=== PATIENT | male | born 1990 | race Caucasian/White ===

== ENCOUNTER 2016-09-04 11:54 | Emergency (ER) | payer OTHER ==
[~2016-09-04] VITALS: Ht 170.2 cm; Wt 81.6 kg
--- NOTE | 2016-09-04 12:01 | NUR ---
PT TAKEN TO XRAY VIA W/C BY TECH.
[2016-09-04 12:02] VITALS: BP 157/93
[2016-09-04 12:07] VITALS: BP 157/93
--- NOTE | 2016-09-04 12:11 | NUR ---
PATIENT AMBULATED TO BED 3.
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
[2016-09-04] MEDS ORDERED: HYDROcodone/APAP 5/325 MG 1 TAB TAB PO ONE (12:20)
--- NOTE | 2016-09-04 12:43 | NUR ---
PT TO CT VIA WHEEL CHAIR
--- NOTE | 2016-09-04 13:00 | NUR ---
RETURNED FROM CT
== END 2016-09-04 14:30 | disposition home or self-care (01) ==
LOC: MED 11:54
DX: S06.0X0A Concussion without loss of consciousness, initial encounter (principal); S05.12XA Contusion of eyeball and orbital tissues, left eye, initial encounter; Y04.8XXA Assault by other bodily force, initial encounter; Y93.01 Activity, walking, marching and hiking; Y92.89 Other specified places as the place of occurrence of the external cause; Y99.8 Other external cause status

== ENCOUNTER 2017-02-03 12:36 | Emergency (ER) | payer OTHER ==
[~2017-02-03] VITALS: Ht 170.2 cm; Wt 90.0 kg
[2017-02-03 12:41] VITALS: BP 140/98
--- NOTE | 2017-02-03 12:42 | NUR ---
PT AMBULATED TO BED 11.
--- NOTE | 2017-02-03 13:05 | NUR ---
Dr. De La Rosa evaluating patient at bedside.
[2017-02-03] MEDS ORDERED: DIPHENOXYLATE /ATROPINE 2.5 MG TAB PO ONE (13:10)
[2017-02-03] MEDS ORDERED: ONDANSETRON 4 MG ODT PO ONE (13:10)
--- NOTE | 2017-02-03 13:15 | NUR ---
26 M BIB SELF WITH C/O 4/10 "SHARP" NON RADIATING EPIGASTRIC PAIN X 2 DAYS WITH N/V/D; PT DENIES ANY BLOOD IN EMESIS OR BOWEL; PT REPORT OF HAVING FEVER LAST NIGHT; PT DENIES ANY URINARY COMPLAINTS; AOX4 WITH EVEN AND STEADY GAIT; VSS; PATIENT POSITIONED FOR COMFORT; HOB ELEVATED; BEDRAILS UP X2; BED DOWN. ER MD MADE AWARE OF PT STATUS.
[2017-02-03 13:47] VITALS: BP 138/90
--- NOTE | 2017-02-03 13:47 | NUR ---
Patient discharged with v/s stable. Written and verbal after care instructions given and explained. Patient alert, oriented and verbalized understanding of instructions. Ambulatory with steady gait. All questions addressed prior to discharge. ID band removed. Patient advised to follow up with PMD. Rx of lOMOTIL AND ZOFRAN given. Patient educated on indication of medication including possible reaction and side effects. Opportunity to ask questions provided and answered.
== END 2017-02-03 13:47 | disposition home or self-care (01) ==
LOC: MED 12:36
DX: R11.10 Vomiting, unspecified (principal); R19.7 Diarrhea, unspecified; R03.0 Elevated blood-pressure reading, without diagnosis of hypertension; R10.13 Epigastric pain; R42 Dizziness and giddiness; R53.1 Weakness
CPT/HCPCS: 99283; S0119

== ENCOUNTER 2018-01-24 09:56 | Emergency (ER) | payer OTHER ==
[~2018-01-24] VITALS: Ht 172.7 cm; Wt 94.9 kg
[2018-01-24 10:03] VITALS: BP 140/98
--- NOTE | 2018-01-24 10:10 | NUR ---
27Y/M BIB C/O LT SHOULDER PAIN WITH SOB SINCE THIS MORNING; DENIES INJURY. PT STATES " HE HAS LEFT SHOULDER PAIN WITH BREATHING." 10/10 PAIN SCALE; FULL ROM AT THIS TIME, NO SWEELING OR REDNESS NOTED. BED DOWN. BEDRAIL UP X 1. ER MD AWARE AND NOTIFIED AT THIS TIME. HX; DENIES RX; NONE
[2018-01-24] MEDS ORDERED: KETOROLAC 60 MG/2 ML VIAL IM ONE (10:25)
--- NOTE | 2018-01-24 10:25 | NUR ---
Patient being evaluated by physician at bedside.
[2018-01-24 10:45] VITALS: BP 138/97
== END 2018-01-24 10:45 | disposition home or self-care (01) ==
LOC: MED 09:59
DX: R06.02 Shortness of breath (principal); M54.6 Pain in thoracic spine; F17.200 Nicotine dependence, unspecified, uncomplicated
CPT/HCPCS: 96372; 99283; J1885

== ENCOUNTER 2018-02-16 13:41 | Emergency (ER) | payer OTHER ==
[~2018-02-16] VITALS: Ht 170.2 cm; Wt 98.9 kg
[2018-02-16 13:52] VITALS: BP 152/82
--- NOTE | 2018-02-16 14:00 | NUR ---
BIB SELF. PATIENT PRESENTS TO ED WITH AMB PAIN AND N/V/D X 2 DAYS. PT STATES THE VOMITING STARTED TODAY. SKIN IS PINK/WARM/DRY; AAOX4 WITH EVEN AND STEADY GAIT; LUNGS CLEAR BL; HR EVEN AND REGULAR; PT DENIES ANY FEVER, CP, SOB, OR COUGH AT THIS TIME; PATIENT STATES PAIN OF 6/10 AT THIS TIME; VSS; PATIENT POSITIONED FOR COMFORT; HOB ELEVATED; BEDRAILS UP X2; BED DOWN. ER MD MADE AWARE OF PT STATUS.
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
[2018-02-16] MEDS ORDERED: ALUMINUM HYD/MAG/SIMETHICONE 30 ML, DICYCLOMINE HCL LIQUID 20 MG, LIDOCAINE VISCOUS 2% ... PO ONE ×3 (14:25)
[2018-02-16] MEDS ORDERED: ONDANSETRON 4 MG ODT PO ONE (14:25)
--- NOTE | 2018-02-16 14:30 | NUR ---
PA AT BEDSIDE.
[2018-02-16 15:08] VITALS: BP 152/82
--- NOTE | 2018-02-16 15:09 | NUR ---
DPatient discharged with v/s stable. Written and verbal after care instructions given and explained. Patient alert, oriented and verbalized understanding of instructions. Ambulatory with steady gait. All questions addressed prior to discharge. ID band removed. Patient advised to follow up with PMD. Rx of PEPCID, ZOFRAN given. Patient educated on indication of medication including possible reaction and side effects. Opportunity to ask questions provided and answered.
== END 2018-02-16 15:09 | disposition home or self-care (01) ==
LOC: MED 13:41
DX: R10.9 Unspecified abdominal pain (principal); R14.0 Abdominal distension (gaseous); R11.10 Vomiting, unspecified; K59.00 Constipation, unspecified
CPT/HCPCS: 99283; Q0162

== ENCOUNTER 2018-10-17 11:37 | Emergency (ER) | payer OTHER ==
[~2018-10-17] VITALS: Ht 172.7 cm; Wt 95.4 kg
[2018-10-17 11:45] VITALS: BP 125/81
--- NOTE | 2018-10-17 11:55 | NUR ---
PT AMBULATED TO ER BED 5
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
--- NOTE | 2018-10-17 12:39 | NUR ---
DR. ERNST BEDSIDE EVALUATING PT
[2018-10-17 13:08] VITALS: BP 128/79
--- NOTE | 2018-10-17 13:08 | NUR ---
Patient discharged with v/s stable. Written and verbal after care instructions given and explained. Patient alert, oriented and verbalized understanding of instructions. Ambulatory with steady gait. All questions addressed prior to discharge. ID band removed. Patient advised to follow up with PMD. Rx of Ciprofloxacin 0.2% otic solution, Augmentin given. Patient educated on indication of medication including possible reaction and side effects. Opportunity to ask questions provided and answered.
== END 2018-10-17 13:08 | disposition home or self-care (01) ==
LOC: MED 11:37
DX: H66.91 Otitis media, unspecified, right ear (principal); H60.91 Unspecified otitis externa, right ear; F17.200 Nicotine dependence, unspecified, uncomplicated; Z98.890 Other specified postprocedural states; Z71.6 Tobacco abuse counseling
CPT/HCPCS: 99283

== ENCOUNTER 2020-09-26 15:35 | Emergency (ER) | payer OTHER ==
[~2020-09-26] VITALS: Ht 170.2 cm; Wt 97.5 kg
[2020-09-26 15:51] VITALS: BP 136/83
--- NOTE | 2020-09-26 15:54 | NUR ---
Pt ambulated to ER bed 1.
--- NOTE | 2020-09-26 16:00 | NUR ---
PATIENT BIB SELF FOR C/O CVOID SYMPTOMS X 1 DAY. PER PATIENT HAS DRY COUGH AND CONGESTIONS X 1 DAY. PATIENT ALSO HAS C/O CHLLS AND FEVER. CURRENT ORAL TEMP 100.6. PATIENT DENIES TAKING ANY OTC MEDICATION OF SYMPTOM MANAGEMENT. PATIENT DENIES CP AT THIS TIME. PATIENT STATES WAS EXPOSE TO FAMILY MEMBERS WITH SIMILAR SYMPTOMS AND WANTED TO GET COVID TEST TO R/O COVID. MEDHX: DENIES NKA.
--- NOTE | 2020-09-26 16:35 | NUR ---
Essence swab collected and taken to lab.
--- NOTE | 2020-09-26 16:42 | NUR ---
Xray at bedside.
[2020-09-26] MEDS ORDERED: ACETAMINOPHEN 650 MG/20.3 ML UDC PO ONE (17:25)
[2020-09-26 17:42] VITALS: BP 132/78
--- NOTE | 2020-09-26 17:42 | NUR ---
Patient discharged with v/s stable. Written and verbal after care instructions given and explained. Patient verbalized understanding. Ambulatory with steady gait. All questions addressed prior to discharge. Advised to follow up with PMD.
== END 2020-09-26 17:42 | disposition home or self-care (01) ==
LOC: MED 15:35
DX: J06.9 Acute upper respiratory infection, unspecified (principal); F17.210 Nicotine dependence, cigarettes, uncomplicated; Z71.6 Tobacco abuse counseling; Z20.822 Contact with and (suspected) exposure to COVID-19
CPT/HCPCS: 71045; 99284

== ENCOUNTER 2021-01-14 18:56 | Emergency (ER) | payer OTHER ==
[~2021-01-14] VITALS: Ht 170.2 cm; Wt 98.0 kg
--- NOTE | 2021-01-14 19:02 | NUR ---
Room call x1
[2021-01-14 19:26] VITALS: BP 143/84
--- NOTE | 2021-01-14 19:31 | NUR ---
PT AMBULATED TO LOBBY.
--- NOTE | 2021-01-14 21:32 | NUR ---
AMBULATORY TO BED #2
[2021-01-14 22:15] VITALS: BP 143/84
== END 2021-01-14 22:15 | disposition home or self-care (01) ==
LOC: MED 18:56
DX: R22.0 Localized swelling, mass and lump, head (principal); F17.210 Nicotine dependence, cigarettes, uncomplicated
CPT/HCPCS: 99281